=== PATIENT | male | born 1965 | race Two or more races ===

== ENCOUNTER 2020-10-29 15:22 | Emergency (ER) | payer SELFPAY ==
[~2020-10-29] VITALS: Ht 180.3 cm; Wt 124.1 kg
--- NOTE | 2020-10-29 15:30 | NUR ---
PT BROUGHT BACK TO ROOM VIA WC.
--- NOTE | 2020-10-29 15:51 | NUR ---
PRECEPTOR RN: SHONNA STUDENT HAS BEEN AT BEDSIDE FOR ASSESSMENT.
[2020-10-29] MEDS ORDERED: SODIUM CHLORIDE FLUSH 10ML SYR IVF ONE (16:30)
[2020-10-29] MEDS ORDERED: AMPICILLIN/SULBACTAM 3 GM in SODIUM CHLORIDE 0.9% 100 ML IV ONE (16:30)
[2020-10-29] MEDS ORDERED: VANCOMYCIN PER PHARMACY MC ONE (16:30)
[2020-10-29] MEDS ORDERED: VANCOMYCIN 2,400 MG in SODIUM CHLORIDE 0.9% 500 ML IV ONE (16:30)
[2020-10-29 16:36] LABS: BASOPHILS % (AUTO) 1 % (0-1); EOSINOPHILS % (AUTO) 1 % (1-7); LYMPHOCYTES % (AUTO) 34 % (22-44); MEAN CORPUSCULAR HEMOGLOBIN 31.9 pg (27.5-34.5); MEAN CORPUSCULAR HGB CONC 34.3 g/dL (33.2-36.2); MEAN PLATELET VOLUME 8.5 fL (7.4-10.4); MONOCYTES % (AUTO) 6 % (2-9); NEUTROPHILS % (AUTO) 58 % (42-75); PLATELET COUNT 216 x10^3/uL (130-400); RED BLOOD COUNT 4.78 x10^6/uL (4.38-5.82); RED CELL DISTRIBUTION WIDTH 12.9 % (9.4-14.8)
[2020-10-29 16:39] LABS: MD NO
[2020-10-29 16:45] LABS: ALBUMIN 3.8 g/dL (3.4-5.0); ANION GAP 7 mmol/L (5-15); CALCIUM 9.1 mg/dL (8.5-10.1); CHLORIDE 106 mmol/L (98-107); CREATININE 0.76 mg/dL (0.7-1.3)
--- NOTE | 2020-10-29 16:57 | NUR ---
PRECEPTOR RN: PIV PLACED. IV ABX STARTED PER AUG. SHONNA STUDENT AT BEDSIDE FOR WOUND CARE.
--- NOTE | 2020-10-29 17:30 | NUR ---
PT MEDICATED PER AUG. SUTURE REMOVED BY EMT AND WRAPPED. VICTORIAN, CALL LIGHT W/IN REACH. BEDSIDE
--- NOTE | 2020-10-29 18:24 | NUR ---
PT SITTING ON GURNEY WATCHING TV. BEDSIDE. PT HERNÁNS, MANFRED. CALL LIGHT W/IN REACH.
--- NOTE | 2020-10-29 18:48 | NUR ---
[facility] REPORT GIVEN TO MICHAELLE
--- NOTE | 2020-10-29 18:51 | NUR ---
RECEIVED REPORT FROM [facility]. ASSUMING CARE AT THIS TIME. PT RESTING ON [facility]. IV ABX INFUSING.
[2020-10-29 19:38] VITALS: BP 140/91
== END 2020-10-29 20:09 | disposition home or self-care (01) ==
LOC: ED 16:02
DX: S71.151A Open bite, right thigh, initial encounter (principal); L03.115 Cellulitis of right lower limb; I25.2 Old myocardial infarction; I10 Essential (primary) hypertension; E11.9 Type 2 diabetes mellitus without complications; E78.5 Hyperlipidemia, unspecified; Z86.39 Personal history of other endocrine, nutritional and metabolic disease; W54.0XXA Bitten by dog, initial encounter; Y93.89 Activity, other specified; Y92.89 Other specified places as the place of occurrence of the external cause; Y99.8 Other external cause status
CPT/HCPCS: 36415; 80048; 82040; 85025; 96365; 96366; 96367; 99284; J0295; J3370; J7040